=== PATIENT | male | born 1940 | race African-American/Black ===

== ENCOUNTER 2017-03-15 15:10 | Inpatient (IN) | payer MEDICARE, MEDICAID ==
[~2017-03-15] VITALS: Ht 182.9 cm; Wt 79.4 kg
[~2017-03-15 15:10] MED LIST: AMLO1TAB36 PO; ASPI-1073 PO; ATOR20TA65 PO; BICA50TA2 PO; CEPH500C2 PO; CINA30 PO; CYCL5TAB PO; FISH PO; GABA-290 PO; GABA-531 PO; IBUP-1510 PO; METF500T4 PO; REPA2TAB6 PO; SITA100T6 PO; TRIC54 PO; VALS160T2 PO
[2017-03-15] MEDS ORDERED: SODIUM CHLORIDE 0.9% 1,000 ML IV ONE (15:22)
[2017-03-15 16:11] LABS: BASOPHILS % 0.3 % (0.0-2.0); HEMATOCRIT. 30.6 % (42.0-52.0); HEMOGLOBIN. 10.1 g/dL (14.0-18.0); LYMPHOCYTES % 9.7 % (20.0-50.0); MEAN CORPUSCULAR HEMOGLOBIN 29.2 pg (28.0-32.0); MEAN CORPUSCULAR VOLUME 88.1 fL (80.0-94.0); MEAN PLATELET VOLUME 9.2 fl (7.4-10.4); MONOCYTES % 7.7 % (2.0-8.0); NEUTROPHILS % 80.3 % (40.0-76.0); PLATELET 148 x1000/uL (130-400); RED BLOOD CELL COUNT 3.48 mill/uL (4.7-6.1); RED CELL DISTRIBUTION WIDTH 15.1 % (11.6-14.6)
[2017-03-15 16:20] LABS: CARBON DIOXIDE 24 mEq/L (21-32); CHLORIDE 114 mEq/L (98-107)
[2017-03-15 16:24] LABS: CREATINE KINASE MB FRACTION 2.9 ng/mL (0.5-3.6); TROPONIN I < 0.02 ng/mL (0.00-0.04)
[2017-03-15] MEDS ORDERED: ASPIRIN 81MG TABLET PO ONE (17:00)
[2017-03-15] MEDS ORDERED: ACETAMINOPHEN 325MG TABLET PO PRN (19:15)
[2017-03-15] MEDS ORDERED: LORAZEPAM 2MG/ML CPJ IV PRN (19:15)
[2017-03-15] MEDS ORDERED: DOCUSATE SODIUM 100MG CAPSULE PO PRN (19:15)
[2017-03-15] MEDS ORDERED: HYDROCODONE/ACETAMINOPHEN 5/325MG TABLET PO PRN (19:15)
[2017-03-15] MEDS ORDERED: ONDANSETRON HCL 4MG/2ML VIAL IV PRN (19:15)
[2017-03-15] MEDS ORDERED: MAGNESIUM/ALUMINUM HYDROXIDE/SIMETHICONE 30ML UDC PO PRN (19:15)
[2017-03-15] MEDS ORDERED: GUAIFENESIN 200MG/10ML SUGAR FREE UDC PO PRN (19:15)
[2017-03-15] MEDS ORDERED: IPRATROPIUM/ALBUTEROL 0.5-3(2.5)MG/3ML NEB INH PRN (19:15)
[2017-03-15 20:03] LABS: CHLORIDE 120 mEq/L (98-107)
[2017-03-15 20:09] LABS: CARBON DIOXIDE 22 mEq/L (21-32)
[2017-03-15] MEDS ORDERED: HYDROMORPHONE HCL/PF 2MG/ML CPJ IV PRN (20:45)
[2017-03-15] MEDS ORDERED: NA PHOS,M-B/NA PHOS,DI-BA ENEMA 118ML PR PRN (20:45)
[2017-03-16] VITALS: BP_SYST 125; BP_SYST 148; BP_DIAS 72; BP_DIAS 89
[2017-03-16 04:00] VITALS: BP 140/86
[2017-03-16] MEDS ORDERED: DEXTROSE 50% WATER 50ML SYRINGE IV PRN (04:00)
[2017-03-16 05:54] LABS: CARBON DIOXIDE 26 mEq/L (21-32); CHLORIDE 113 mEq/L (98-107); HDL CHOLESTEROL 44 mg/dL (40-59); LDL CHOLESTEROL 111 mg/dL (5-100)
[2017-03-16] MEDS: BLOOD SUGAR DIAGNOSTIC STRIP TEST SCH ×4 (06:07→20:22)
[2017-03-16] MEDS: SODIUM CHLORIDE 0.45% 1,000 ML IV SCH ×2 (06:07→10:13)
[2017-03-16 06:36] LABS: BASOPHILS % 0.6 % (0.0-2.0); EOSINOPHILS % 3.1 % (0.0-5.0); HEMATOCRIT. 27.8 % (42.0-52.0); HEMOGLOBIN. 9.2 g/dL (14.0-18.0); LYMPHOCYTES % 13.7 % (20.0-50.0); MEAN CORPUSCULAR HEMOGLOBIN 29.2 pg (28.0-32.0); MEAN CORPUSCULAR VOLUME 88.5 fL (80.0-94.0); MEAN PLATELET VOLUME 9.4 fl (7.4-10.4); MONOCYTES % 9.1 % (2.0-8.0); NEUTROPHILS % 73.5 % (40.0-76.0); PLATELET 140 x1000/uL (130-400); RED BLOOD CELL COUNT 3.15 mill/uL (4.7-6.1); RED CELL DISTRIBUTION WIDTH 14.6 % (11.6-14.6)
[2017-03-16 07:11] LABS: CLARITY URINE CLEAR (CLEAR); COLOR URINE DARK YELLOW (YELLOW); GLUCOSE URINE NEGATIVE (NEGATIVE); KETONES URINE NEGATIVE (NEGATIVE); LEUKOCYTE ESTERASE URINE NEGATIVE (NEGATIVE); NITRITE URINE NEGATIVE (NEGATIVE); OCCULT BLOOD URINE NEGATIVE (NEGATIVE); PROTEIN URINE TRACE (NEGATIVE); SPECIFIC GRAVITY URINE 1.017 (1.005-1.030)
[2017-03-16 08:20] VITALS: BP 164/90
[2017-03-16] MEDS ORDERED: MEDICATION NOT ON FORMULARY EA (Valsartan (Diovan) 160 MG) PO SCH (10:00)
[2017-03-16] MEDS ORDERED: MEDICATION NOT ON FORMULARY EA (Sitagliptin Phosphate (Januvia) 100 MG) PO SCH (10:00)
[2017-03-16] MEDS ORDERED: MEDICATION NOT ON FORMULARY EA (Cyclobenzaprine Hcl 1 TAB) PO PRN (10:00)
[2017-03-16] MEDS: ENOXAPARIN 40MG/0.4ML SYR SUBCUT SCH (10:07)
[2017-03-16] MEDS: ASPIRIN 81MG EC TABLET PO SCH (10:07)
[2017-03-16] MEDS: INSULIN LISPRO 100 UNITS/ML SUBCUT SCH ×4 (10:09→20:22)
[2017-03-16] MEDS ORDERED: CYCLOBENZAPRINE 10MG TABLET PO PRN (10:15)
[2017-03-16 12:37] VITALS: BP 147/84
[2017-03-16] MEDS: CEPHALEXIN 500MG CAPSULE PO SCH ×3 (12:37→20:21)
[2017-03-16] MEDS: IBUPROFEN 800MG TABLET PO SCH ×2 (12:38→17:08)
[2017-03-16] MEDS: GABAPENTIN 300MG CAPSULE PO SCH ×2 (13:47→20:21)
[2017-03-16] MEDS ORDERED: MUPIROCIN 2% OINT 22GM TOP SCH (14:00)
[2017-03-16 16:50] VITALS: BP 145/92
[2017-03-16] MEDS: CINACALCET HCL 30MG TABLET PO SCH (17:02)
[2017-03-16] MEDS: MUPIROCIN 2% OINT 22GM TOP SCH (17:06)
[2017-03-16] MEDS: SODIUM CHL 0.45% + KCL 20MEQ/L 1,000 ML IV SCH ×2 (18:56→20:20)
[2017-03-16 20:00] VITALS: BP 116/70
[2017-03-16] MEDS: ATORVASTATIN CALCIUM 20MG TABLET PO SCH (20:21)
[2017-03-16] MEDS ORDERED: MEDICATION NOT ON FORMULARY EA (Gabapentin 600 MG) PO SCH (21:00)
[2017-03-17] VITALS (7 sets, daily range): BP systolic 123–163; BP diastolic 76–95
[2017-03-17] MEDS: CLONIDINE 0.1MG TABLET PO PRN (05:18)
[2017-03-17] MEDS: SODIUM CHL 0.45% + KCL 20MEQ/L 1,000 ML IV SCH ×2 (05:19→18:24)
[2017-03-17] MEDS: MUPIROCIN 2% OINT 22GM TOP SCH ×3 (05:19→21:55)
[2017-03-17] MEDS: BLOOD SUGAR DIAGNOSTIC STRIP TEST SCH ×4 (06:40→21:33)
[2017-03-17 07:36] LABS: CARBON DIOXIDE 25 mEq/L (21-32); CHLORIDE 110 mEq/L (98-107)
[2017-03-17] MEDS: INSULIN LISPRO 100 UNITS/ML SUBCUT SCH ×4 (07:50→21:00)
[2017-03-17] MEDS: FISH OIL/OMEGA-3 FATTY ACIDS 1000MG CAPSULE PO SCH (08:46)
[2017-03-17] MEDS: LOSARTAN POTASSIUM 100 MG TABLET PO SCH (08:47)
[2017-03-17] MEDS: LINAGLIPTIN 5MG TABLET PO SCH (08:47)
[2017-03-17] MEDS: CEPHALEXIN 500MG CAPSULE PO SCH ×4 (08:47→21:55)
[2017-03-17] MEDS: GABAPENTIN 300MG CAPSULE PO SCH ×3 (08:48→21:55)
[2017-03-17] MEDS: IBUPROFEN 800MG TABLET PO SCH ×3 (08:49→17:33)
[2017-03-17] MEDS: BICALUTAMIDE 50 MG TABLET PO SCH (08:52)
[2017-03-17] MEDS: ASPIRIN 81MG EC TABLET PO SCH (08:52)
[2017-03-17] MEDS: ENOXAPARIN 40MG/0.4ML SYR SUBCUT SCH (08:52)
[2017-03-17] MEDS: FENOFIBRATE NANOCRYSTALLIZED 48MG TABLET PO SCH (08:52)
[2017-03-17] MEDS ORDERED: FENOFIBRATE MICRONIZED PO SCH (09:00)
[2017-03-17] MEDS ORDERED: CYCLOBENZAPRINE 10MG TABLET PO PRN (12:30)
[2017-03-17] MEDS ORDERED: POTASSIUM CHLORIDE 20MEQ TABLET SR PO SCH (16:15)
[2017-03-17] MEDS: CINACALCET HCL 30MG TABLET PO SCH (17:33)
[2017-03-17] MEDS: ATORVASTATIN CALCIUM 20MG TABLET PO SCH (21:55)
[2017-03-18 00:40] VITALS: BP 177/92
[2017-03-18] MEDS: CLONIDINE 0.1MG TABLET PO PRN ×2 (00:44→06:46)
[2017-03-18 04:00] VITALS: BP 169/109
[2017-03-18] MEDS: INSULIN LISPRO 100 UNITS/ML SUBCUT SCH ×2 (06:19→12:50)
[2017-03-18] MEDS: BLOOD SUGAR DIAGNOSTIC STRIP TEST SCH ×2 (06:19→13:18)
[2017-03-18] MEDS: MUPIROCIN 2% OINT 22GM TOP SCH ×2 (06:31→13:19)
[2017-03-18] MEDS: SODIUM CHL 0.45% + KCL 20MEQ/L 1,000 ML IV SCH (06:33)
[2017-03-18 06:41] LABS: CHLORIDE 111 mEq/L (98-107)
[2017-03-18 06:47] LABS: CARBON DIOXIDE 25 mEq/L (21-32)
[2017-03-18 08:00] VITALS: BP 150/89
[2017-03-18] MEDS: BICALUTAMIDE 50 MG TABLET PO SCH (09:04)
[2017-03-18] MEDS: ASPIRIN 81MG EC TABLET PO SCH (09:04)
[2017-03-18] MEDS: FENOFIBRATE NANOCRYSTALLIZED 48MG TABLET PO SCH (09:05)
[2017-03-18] MEDS: CEPHALEXIN 500MG CAPSULE PO SCH ×2 (09:05→13:18)
[2017-03-18] MEDS: LINAGLIPTIN 5MG TABLET PO SCH (09:05)
[2017-03-18] MEDS: GABAPENTIN 300MG CAPSULE PO SCH ×2 (09:05→13:18)
[2017-03-18] MEDS: LOSARTAN POTASSIUM 100 MG TABLET PO SCH (09:05)
[2017-03-18] MEDS: FISH OIL/OMEGA-3 FATTY ACIDS 1000MG CAPSULE PO SCH (09:05)
[2017-03-18] MEDS: ENOXAPARIN 40MG/0.4ML SYR SUBCUT SCH (09:06)
[2017-03-18] MEDS: IBUPROFEN 800MG TABLET PO SCH ×2 (09:09→13:18)
[2017-03-18 12:00] VITALS: BP 167/91
[2017-03-18 12:37] VITALS: BP 167/91
[2017-03-18 16:00] VITALS: BP 166/91
== END 2017-03-18 17:30 | disposition home health service (06) | DRG 640 ==
LOC: ER 15:46 → 6WST 18:26 → EDBEDREQ 18:29 → ENRESERV 20:29
PROVIDERS: ADMIT Internal Medicine; ATTEND Internal Medicine
DX: E87.0 Hyperosmolality and hypernatremia (principal); N17.0 Acute kidney failure with tubular necrosis; E46 Unspecified protein-calorie malnutrition; D63.8 Anemia in other chronic diseases classified elsewhere; E78.00 Pure hypercholesterolemia, unspecified; E86.0 Dehydration; E87.6 Hypokalemia; F48.8 Other specified nonpsychotic mental disorders; G40.909 Epilepsy, unspecified, not intractable, without status epilepticus; I10 Essential (primary) hypertension; J44.9 Chronic obstructive pulmonary disease, unspecified; E11.40 Type 2 diabetes mellitus with diabetic neuropathy, unspecified; E78.5 Hyperlipidemia, unspecified; G89.4 Chronic pain syndrome; E11.319 Type 2 diabetes mellitus with unspecified diabetic retinopathy without macular edema; J98.4 Other disorders of lung; N40.0 Benign prostatic hyperplasia without lower urinary tract symptoms; F17.210 Nicotine dependence, cigarettes, uncomplicated; Z91.81 History of falling; Z68.23 Body mass index [BMI] 23.0-23.9, adult; Z79.82 Long term (current) use of aspirin; Z79.899 Other long term (current) drug therapy; Z85.46 Personal history of malignant neoplasm of prostate; Z86.73 Personal history of transient ischemic attack (TIA), and cerebral infarction without residual deficits; Z85.819 Personal history of malignant neoplasm of unspecified site of lip, oral cavity, and pharynx
CPT/HCPCS: 36415; 70450; 71010; 73030; 76770; 80048; 80053; 80061; 81001; 82553; 82962; 84153; 84484; 85025; 93005; 96360; 96361; 97116; 97162; 99285; J1650; J1815; J3480; J7030